=== PATIENT | female | born 1950 | race Caucasian/White ===

== ENCOUNTER → 2019-02-09 06:31 | Outpatient (CLI) | payer MEDICARE, OTHER, SELFPAY ==
--- NOTE | 2019-02-09 | DI.MRI.S_ITS ---
PROCEDURE: MR LUMBAR SPINE WO CON INDICATIONS: Other intervertebral disc degeneration, lumbar TECHNIQUE: Noncontrast sagittal T1 spin echo and T2 fast echo, sagittal STIR, axial T1 and T2 fast spin echo through the lumbar spine. In cases with scoliosis, additional coronal T2 fast spin echo may be performed. COMPARISON: [facility], MR, L-SPINE WITHOUT CONTRAST, 08/30/2016, 10:45. [facility], CR, L-SPINE MINIMUM 4 VIEWS, 08/30/2016, 11:11. [facility], CT, ABDOMEN/PELVIS WITH CONTRAST, 09/23/2017, 15:13. FINDINGS: Image quality: Excellent. Alignment and Curvature: There is minimal retrolisthesis at L1-L2. Mild grade 1 anterolisthesis is seen at L4-L5. No associated pars defects are seen. Bone Marrow: Marrow is of normal overall signal. No acute vertebral body compression fractures. Spinal Cord: Conus medullaris terminates at the L1 level. Visualized cord demonstrates normal signal and size. Paraspinous Soft Tissues: No paravertebral masses. T12-L1: Normal appearance. L1-L2: Mild loss of disc height is seen. Loss of disc signal is seen. Mild to moderate disc bulge is seen. Moderate bilateral neural foraminal narrowing is seen. Mild central canal narrowing is seen. When comparison is made with the prior examination, these findings are similar. L2-L3: The disc height is well-preserved. Loss of disc signal is seen at this level. Mild generalized disc bulge is seen. Mild bilateral neural foraminal narrowing is seen. Moderate bilateral neural foraminal narrowing is seen, right worse than left. Minimal central canal narrowing is seen. When comparison is made with the prior examination, these findings are similar. L3-L4: The disc height is well-preserved. Loss of disc signal is seen at this level. Moderate disc bulge is seen. There is a central disc protrusion seen. Moderate facet joint hypertrophy is seen. Moderate to severe bilateral neural foraminal narrowing is seen, left worse than right. There is a degree of impingement seen upon the exiting nerve roots. Moderate to severe central canal narrowing is seen. These degenerative changes are progressed compared to 2016. L4-L5: Mild loss of disc height is seen. Loss of disc signal is seen. Mild to moderate disc bulge is seen. Prominent facet hypertrophy is seen. Moderate to severe bilateral neural foraminal narrowing seen. There is a degree of impingement seen upon the exiting nerve roots. Moderate to severe central canal narrowing is seen. These degenerative changes are slightly progressed compared to 2016. L5-S1: Moderate to severe loss of disc height and disc signal are seen. Moderate generalized disc bulge is seen. There is at least moderate bilateral neural foraminal narrowing seen. Mild central canal narrowing is seen. When comparison is made with the prior examination, these findings are similar. IMPRESSION: Multiple levels of lumbar spine degenerative change are seen, which are overall most prominent at L4-L5. The degenerative changes have progressed compared to 2016. Dictated by: Mark Sosa M.D. on 02/09/2019 at 11:02 Approved by: Mark Sosa M.D. on 02/09/2019 at 11:10
== END ==
PROVIDERS: Family Provider Family Medicine; PCP Family Medicine; Visit Provider Family Medicine
DX: M51.36 Other intervertebral disc degeneration, lumbar region (principal); M47.816 Spondylosis without myelopathy or radiculopathy, lumbar region; M47.817 Spondylosis without myelopathy or radiculopathy, lumbosacral region; M43.16 Spondylolisthesis, lumbar region
CPT/HCPCS: 72148

== ENCOUNTER 2019-07-17 07:58 | Day surgery (SDC) | payer MEDICARE, OTHER, SELFPAY ==
[2019-07-17] VITALS (10 sets, daily range): BP systolic 114–152; BP diastolic 64–95; PULSE 54–76; RESP 15–16; TEMP 36.6–37.6; O2SAT 97–100; BMI 11.4
--- NOTE | 2019-07-17 | DI.RAD.S_ITS ---
PROCEDURE: FL MYELOGRAM SPINE LUMBOSACRAL INDICATIONS: LUMBAR SPINAL STENOSIS/[id number] TECHNIQUE: The indications, alternatives, benefits, risks and complications of the procedure were explained to the patient. Written informed consent was obtained and placed in the chart. The patient was placed in a prone position on the fluoroscopy table, and a level was chosen for percutaneous access under fluoroscopic guidance. The skin was prepped and draped in a sterile fashion. After local anaesthetic, a spinal needle was then used to enter the intrathecal space, with return of clear cerebrospinal fluid. 15 mL of Isovue M-200 were administered intrathecally under fluoroscopic visualization. The needle was then withdrawn, and a bandage applied to the puncture site. Fluoroscopic spot films were then acquired in various positions. FINDINGS: Standing frontal, lateral, and oblique views demonstrate no significant central canal stenoses. Access level: Right interlaminar notch, L2-3 level. Medications: 1% lidocaine for local anaesthesia. Complications: None. Patient was transferred to CT for subsequent CT myelogram. IMPRESSION: Successful fluoroscopically guided administration of iodinated contrast into the lumbar spine central canal for CT myelogram. Note was made of high-grade spinal stenosis at L3-4 and especially at L4-5. Dictated by: Onofre Kendall M.D. on 07/17/2019 at 10:24 Approved by: Onofre Kendall M.D. on 07/17/2019 at 10:25
--- NOTE | 2019-07-17 | DI.CT.S_ITS ---
PROCEDURE: CT LUMBAR SPINE W CON INDICATIONS: LUMBAR SPINAL STENOSIS/[id number] TECHNIQUE: After the intrathecal administration of 15 mL intrathecal contrast, 3 mm thick sections acquired from T12 to the sacrum. Sagittal and coronal reformats were then constructed. For radiation dose reduction, the following was used: automated exposure control. COMPARISON: None. FINDINGS: Image quality: Excellent. Bones: Mild L4-L5 anterolisthesis secondary to facet hypertrophy. Trace L1-L2 and L2-L3 retrolisthesis. No suspicious bony lesions. No acute fractures. Soft tissues: No retroperitoneal masses. Visualized aorta demonstrates normal caliber. T12-L1: Disc height is normal. Minimal, diffuse disc bulge. Anterior endplate osteophytosis. No central stenosis. No neural foraminal narrowing. No definite neural compression. L1-L2: Disc height is normal. Minimal, diffuse disc bulge are mild bilateral facet hypertrophy. Mild narrowing of the central canal. Mild bilateral neural foraminal narrowing. No definite neural compression. L2-L3: Disc height is normal. Minimal, diffuse disc bulge. Mild bilateral facet hypertrophy. Mild narrowing of the central canal. Mild bilateral neural foraminal narrowing. No definite neural compression. L3-L4: Disc height is normal. Mild diffuse disc bulge. Moderate facet and severe ligamentum flavum hypertrophy. Severe narrowing of the central canal with mild compression of the nerve roots of cauda equina. Moderate to severe bilateral neural foraminal narrowing with slight compression of the exiting L3 nerve roots. L4-L5: Disc height is normal. Vacuum disc phenomenon. Mild to moderate diffuse disc bulge. Severe facet and moderate ligamentum flavum hypertrophy. Severe narrowing of the central canal with compression of the nerve roots of the cauda equina. Severe bilateral neural foraminal narrowing with compression of the L4 nerve roots. L5-S1: Loss of disc height. Vacuum disc phenomenon. Mild, diffuse disc bulge. Mild bilateral facet hypertrophy. No central stenosis. Severe bilateral neural foraminal narrowing with compression of the L5 nerve roots. Miscellaneous: Nerve roots appear unremarkable throughout. No nerve root clumping to suggest arachnoiditis. IMPRESSION: 1. L1-L2, L2-L3 and L4-L5 grade I degenerative spondylolisthesis. 2. Multilevel degenerative disc disease. 3. Multilevel facet arthropathy. 4. Severe L4-L5 at L3-L4 central canal narrowing. Mild L1-L2 and L2-L3 central canal narrowing. 5. Severe bilateral L4-L5 and L5-S1 neural foraminal narrowing. Moderate to severe bilateral L3-L4 neural foraminal narrowing. Mild bilateral L1-L2 and L2-L3 neuroforaminal narrowing. Dictated by: Annette Mcdonough MD, PhD on 07/17/2019 at 14:30 Approved by: Annette Mcdonough MD, PhD on 07/17/2019 at 15:05
[2019-07-17 09:02] LABS: Hematocrit 41.7 % (36-46); Platelet Count 250 X10^3/uL (150-400)
[2019-07-17 09:11] LABS: Prothrombin Time 11.7 SECONDS (10.1-12.7)
--- NOTE | 2019-07-17 09:18 | SUR.PREOP ---
Pt. taking to DI department via samaria
[2019-07-17] MEDS: MIDAZOLAM 5 MG/ML VIAL 2 MG IV (09:32)
--- NOTE | 2019-07-17 09:52 | PC.NURSE ---
Pt finished procedure 945, transferred pt to CT scan for imaging, pt complaining of cramping and pain in her bilateral buttocks and upper legs. Dr. Kendall aware.
--- NOTE | 2019-07-17 10:00 | PC.NURSE ---
Pt tolerated procedure well until end when pt complained of buttock pain and hamstring pain, Dr. Kendall is aware. Stayed with patient during CT and now transferred pt to PACU and transferred care to Amanda EVERETT. Pt's leg sx's are decreasing.
--- NOTE | 2019-07-17 10:06 | SUR.PREOP ---
1000 - pt. returned to OPD, in no acute distress, will continue to monitor
--- NOTE | 2019-07-17 12:24 | SUR.PHASEII ---
Late entry: Pt returned to radiology x 1 for repeat scan. Pt feed lunch, no problems, initially had reports of pain 3/10 to buttocks and radiated down both legs and had feelings of hamstrings twitching, IZABELLA Dickson RN stated Dr. Kendall was aware.
--- NOTE | 2019-07-17 16:35 | SUR.PHASEII ---
Late entry: Pt's pain in buttocks and lower legs and twitching of hamstrings resolved by discharge. Supportive at bedside through out stay here in Phase 2. Pt left when ready and left in stable condition. Bandaid remained c/d/i.
== END 2019-07-17 12:40 | disposition home or self-care (01) ==
PROVIDERS: Radiology Diagnostic Radiology; PCP Family Medicine; Visit Provider Family Medicine
DX: M48.061 Spinal stenosis, lumbar region without neurogenic claudication (principal); M47.816 Spondylosis without myelopathy or radiculopathy, lumbar region; M43.16 Spondylolisthesis, lumbar region
CPT/HCPCS: 36415; 72132; 72265; 85014; 85049; 85610; J2250

== ENCOUNTER → 2019-11-09 12:27 | Outpatient (CLI) | payer MEDICARE, OTHER, SELFPAY ==
--- NOTE | 2019-11-09 | DI.MG.S_ITS ---
BILATERAL DIGITAL DIAGNOSTIC MAMMOGRAM 3D/2D: 11/09/2019 CLINICAL: Left breast pain. Comparison is made to exams dated: 01/14/2017 mammogram, 11/05/2014 mammogram, and 06/04/2013 mammogram - [facility]. There are scattered fibroglandular elements in both breasts. No significant masses, calcifications, or other findings are seen in either breast. IMPRESSION: INCOMPLETE: NEEDS ADDITIONAL IMAGING EVALUATION There is no abnormality seen in the left breast to correspond with the pain in the posterior depth in the upper outer quadrant, however, ultrasound is recommended. There is no abnormality seen in the left breast to correspond with the palpable abnormality and pain at 6 o'clock in the posterior depth, however, ultrasound is recommended. This exam was interpreted at Station ID: [id number]. NOTE: For mammograms, a report in lay terms will be sent to the patient. Approximately 15% of breast malignancies will not be visualized mammographically. In the management of a palpable breast mass, a negative mammogram must not discourage biopsy of a clinically suspicious lesion. Electronically Signed By: Lobito figueroa/angle:11/09/2019 13:40:25 ACR BI-RADS Category 0: Incomplete 3340F
--- NOTE | 2019-11-09 | DI.US.S_ITS ---
LIMITED ULTRASOUND OF LEFT BREAST: 11/09/2019 CLINICAL: Focal left breast pain. Palpable left breast lump. Comparison is made to exams dated: 11/09/2019 mammogram - [facility], 01/14/2017 mammogram, 11/05/2014 mammogram, and 06/04/2013 mammogram - [facility]. Real-time ultrasound of the left breast 1-2 o'clock and 6-8 o'clock regions was performed on the area of interest. IMPRESSION: NEGATIVE There is no sonographic evidence of malignancy. There are no abnormalities seen in the left breast to correspond with the pain at 1 and 2 o'clock, however, clinical followup is recommended. There are no abnormalities seen in the left breast to correspond with the palpable abnormalities and pain at 6, 7, and 8 o'clock, however, clinical followup is recommended. A 1 year screening mammogram is recommended. This exam was interpreted at Station ID: [id number]. Electronically Signed By: Lobito Earl M.D. ddpriyanka/:11/09/2019 14:11:33 letter sent: Clinical Evaluation Ultrasound BI-RADS: 1 Negative
== END ==
PROVIDERS: PCP Family Medicine; Visit Provider Family Medicine
DX: R92.2 Inconclusive mammogram (principal); N64.4 Mastodynia; N63.25 Unspecified lump in the left breast, overlapping quadrants
CPT/HCPCS: 76642; 77066; G0279

== ENCOUNTER → 2020-04-01 16:55 | Outpatient (CLI) | payer MEDICARE, OTHER, SELFPAY ==
--- NOTE | 2020-04-01 | DI.RAD.S_ITS ---
PROCEDURE: XR LUMBAR SPINE MIN 4V INDICATIONS: Lumbar stenosis without neurogenic claudication TECHNIQUE: 4 views of the lumbar spine acquired. COMPARISON: [facility], , L-SPINE MINIMUM 4 VIEWS, 08/30/2016, 11:11. FINDINGS: Bones: 5 nonrib-bearing vertebrae are present. Patient is status post interval transpedicular fusion at L4-5 level with grade 1 anterolisthesis of L4 on L5 measures 5-6 mm in distance compared to 1 cm on preop image. Minimal retrolisthesis of L2 on L3 is seen. Degenerative endplate changes are noted throughout lumbar spine. No vertebral body compression fractures. No suspicious bony lesions. Soft tissues: Overlying bowel gas pattern is normal. No suspicious soft tissue calcifications. Flexion/extension: There is decreased range of motion, with preserved lumbar spine alignment. IMPRESSION: Interval fusion at L4-5 level with decrease in the extent of spondylolisthesis at this level. Stable minimal retrolisthesis of L2 on L3. Slightly decreased range of motion with preserved lumbar spine alignment. Dictated by: Wellington Shepherd M.D. on 04/01/2020 at 17:33 Approved by: Wellington Shepherd M.D. on 04/01/2020 at 17:35
== END ==
PROVIDERS: PCP Family Medicine; Referring Provider Orthopaedic Surgery; Visit Provider Orthopaedic Surgery
DX: M48.061 Spinal stenosis, lumbar region without neurogenic claudication (principal); M43.16 Spondylolisthesis, lumbar region; Z98.1 Arthrodesis status
CPT/HCPCS: 72110

== ENCOUNTER → 2020-12-26 09:15 | Outpatient (CLI) | payer MEDICARE, OTHER, SELFPAY ==
[2020-12-26 10:23] LABS: Add Manual Diff / Slide Review NO; Basophils Absolute Auto 100 /uL (0-100); Basophils Percent Auto 0.9 % (0-2); Eosinophils Absolute Auto 200 /uL (0-450); Eosinophils Percent Auto 3.3 % (2-4); Hematocrit 38.9 % (36-46); Hemoglobin 13.2 g/dL (12.0-16.0); Lymphocytes Absolute Auto 2200 /uL (1100-4500); Mean Corpuscular HGB Conc 33.9 % (30-36); Mean Corpuscular Hemoglobin 29.6 PG (26-34); Mean Corpuscular Volume 87.4 fL (80-100); Monocytes Absolute Auto 500 /uL (0-900); Monocytes Percent Auto 8.3 % (3-14); Neutrophils Absolute Auto 3300 /uL (1500-7000); Neutrophils Percent Auto 52.5 % (50-75); Platelet Count 217 X10^3/uL (150-400); Red Blood Cell Count 4.46 X10^6/uL (4.0-5.2); Red Cell Distribution Width 14.2 % (11.6-14.8); White Blood Cell Count 6.2 X10^3/uL (4.5-11.0)
[2020-12-26 10:40] LABS: BUN Creatinine Ratio 31.3 (6-22); Blood Urea Nitrogen 15 mg/dL (7-17); Calcium 9.4 mg/dL (8.4-10.2); Carbon Dioxide 31 mmol/L (22-32); Chloride 107 mmol/L (98-107); Estimated Glomerular Filt Rate > 60.0 mL/min (>60); Glucose 96 mg/dL (80-110); HEMOLYSIS < 15 (0-50); Potassium 4.2 mmol/L (3.4-5.1); Sodium 139 mmol/L (137-145)
== END ==
PROVIDERS: PCP Family Medicine; Referring Provider Family Medicine; Visit Provider Family Medicine
DX: Z01.818 Encounter for other preprocedural examination (principal); M67.844 Other specified disorders of tendon, left hand; T84.84XD Pain due to internal orthopedic prosthetic devices, implants and grafts, subsequent encounter
CPT/HCPCS: 36415; 80048; 85025; 93005; 93010

== ENCOUNTER → 2021-05-01 09:06 | Outpatient (CLI) | payer MEDICARE, OTHER, SELFPAY ==
[2021-05-01 11:45] LABS: COVID19 -Nasal RAPID Negative (Negative)
== END ==
PROVIDERS: PCP Family Medicine; Visit Provider Physician Assistant
DX: Z01.812 Encounter for preprocedural laboratory examination (principal); Z20.822 Contact with and (suspected) exposure to COVID-19
CPT/HCPCS: 87635; C9803

== ENCOUNTER → 2021-05-03 15:01 | Outpatient (CLI) | payer MEDICARE, OTHER, SELFPAY ==
--- NOTE | 2021-05-03 15:58 | PM.TREADMILL ---
Cardiac Stress Test Report Referral & Results Date Patient Seen: 05/03/21 Time Patient Seen: 15:58 Requesting provider: Newton Flores Indication: Chest pain Rest ECG: Sinus rhythm with nonspecific ST changes Procedure Note: Standard Aayush protocol, 7:33 mins, 7.7 METS Very good exercise capacity, GOOD -33% Normal hemodynamic response to exercise No chest pain or anginal symptoms No significant ST changes at peak exercise Rare PVC Impression: Normal exercise capacity Please note: Actual ECG tracings can be found in the PACS system.
--- NOTE | 2021-05-03 18:19 | DI.NM.S_ITS ---
DATE OF SERVICE: 05/03/2021 PROCEDURE PERFORMED: Exercise treadmill stress test without imaging. ORDERING PROVIDER: Dr. Newton Flores. INDICATIONS: The patient is a 70-year-old female with chest discomfort. FINDINGS: 1. The patient was able to exercise for 7 minutes 33 seconds, suggesting excellent exercise capacity with an GOOD of -33%, achieving 7.7 METs. 2. She had a normal heart rate and blood pressure response to exercise, achieving a maximum heart rate of 158 BPM (106% of her predicted maximum). 3. She had no chest discomfort or anginal symptoms. 4. Her resting ECG shows sinus rhythm with subtle, nonspecific ST-segment abnormalities that become slightly accentuated with exercise, although corrupted by considerable motion artifact at peak exercise. Her 1 minute recovery ECG shows resolution of any ST-segment abnormality and thus this is nonspecific. She had rare isolated PVCs in recovery, but no concerning arrhythmias. IMPRESSION: 1. Normal exercise treadmill study with no significant evidence for ischemia. 2. Excellent exercise capacity without angina. She had rare isolated premature ventricular contractions, but no concerning arrhythmias. Libertad Vasquez - DEMETRIS/fernando/jigar doc#: [id number]/job#: [id number] dd: 05/03/2021 16:38:00 dt: 05/03/2021 18:10:00 DICTATING /COPIES TO: Kevin Drew MD; Newton Flores MD COPIES MNE: RADHA;
== END ==
PROVIDERS: PCP Family Medicine; Referring Provider Student in an Organized Health Care Education/Training Program; Visit Provider Student in an Organized Health Care Education/Training Program
DX: R07.89 Other chest pain (principal)
CPT/HCPCS: 93017

== ENCOUNTER → 2023-05-14 09:29 | Outpatient (CLI) | payer MEDICARE, OTHER, SELFPAY ==
[2023-05-14 20:10] LABS: Add Manual Diff / Slide Review NO; Basophils Absolute Auto 100 /uL (0-100); Basophils Percent Auto 0.8 % (0-2); Eosinophils Absolute Auto 100 /uL (0-450); Eosinophils Percent Auto 2.1 % (2-4); Hematocrit 39.9 % (36-46); Hemoglobin 13.7 g/dL (12.0-16.0); Lymphocytes Absolute Auto 2700 /uL (1100-4500); Lymphocytes Percent Auto 41.2 % (25-40); Mean Corpuscular HGB Conc 34.3 % (30-36); Mean Corpuscular Hemoglobin 29.4 PG (26-34); Mean Corpuscular Volume 85.7 fL (80-100); Monocytes Absolute Auto 500 /uL (0-900); Monocytes Percent Auto 8.2 % (3-14); Neutrophils Absolute Auto 3100 /uL (1500-7000); Neutrophils Percent Auto 47.7 % (50-75); Platelet Count 223 X10^3/uL (150-400); Red Blood Cell Count 4.66 X10^6/uL (4.0-5.2); Red Cell Distribution Width 13.9 % (11.6-14.8); White Blood Cell Count 6.5 X10^3/uL (4.5-11.0)
[2023-05-14 20:17] LABS: Alanine Aminotransferase 23 IU/L (<35); Albumin 4.3 g/dL (3.5-5.0); Albumin Globulin Ratio 1.7 (1.0-2.8); Alkaline Phosphatase 53 U/L (38-126); Aspartate Aminotransferase 37 IU/L (14-36); BUN Creatinine Ratio 29.3 (6-22); Bilirubin Total 0.7 mg/dL (0.2-1.3); Blood Urea Nitrogen 17 mg/dL (7-17); C-Reactive Protein Quant < 0.5 mg/dL (<1.0); Carbon Dioxide 30 mmol/L (22-32); Chloride 104 mmol/L (98-107); Cholesterol 273 mg/dL (140-199); Estimated Glomerular Filt Rate > 60 mL/min (>60); Globulin 2.6 g/dL (1.7-4.1); Glucose 82 mg/dL (80-110); HDL Cholesterol 65 mg/dL (40-60); HEMOLYSIS < 15 (0-50); LDL Cholesterol Calculated 194 mg/dL (<100); Potassium 4.3 mmol/L (3.4-5.1); Sodium 139 mmol/L (137-145); Total Protein 6.9 g/dL (6.3-8.2); Triglycerides 71 mg/dL (35-150)
[2023-05-14 20:32] LABS: Erythrocyte Sedimentation Rate 10 MM/HR (0-20)
== END ==
PROVIDERS: PCP Physician Assistant Medical; Visit Provider Physician Assistant Medical
DX: R07.89 Other chest pain (principal); R10.9 Unspecified abdominal pain
CPT/HCPCS: 80053; 80061; 85025; 85651; 86140

== ENCOUNTER → 2023-07-19 07:26 | Outpatient (CLI) | payer MEDICARE, OTHER, SELFPAY ==
--- NOTE | 2023-07-19 07:27 | DI.US.S_ITS ---
PROCEDURE: US ABDOMEN COMPLETE INDICATIONS: GENERAL ABDOMINAL PAIN TECHNIQUE: Real-time scanning was performed of the abdominal and retroperitoneal organs, with image documentation. COMPARISON: [facility], CT, ABDOMEN/PELVIS WITH CONTRAST, 09/23/2017, 15:13. FINDINGS: Liver: Liver length of 16.1 centimeters. Unremarkable background echotexture. Few small cysts present as before. Gallbladder: No stones, wall thickening, or sonographic Lucas sign. Few small polyps largest measuring up to 4 millimeters. Per ACR incidental findings guidelines, imaging follow-up is not necessary for polyps of this size. Biliary ducts: Intrahepatic bile ducts are non-dilated. Extrahepatic bile duct caliber measures 8 mm. Normal is 6-7 mm or less in diameter, or 10 mm or less post-cholecystectomy. Pancreas: Visualized portions of the pancreas are sonographically normal. Spleen: Spleen is normal in size and homogeneous in echotexture. Kidneys: Right kidney measures min 0.8 cm long; left kidney measures 8.9 cm long. No hydronephrosis. Possible 5 millimeter nonobstructing stone left mid kidney. 5 millimeter echogenic focus left mid kidney cortex is nonspecific, possible tiny angiomyolipoma.. Aorta: Visualized aorta is normal in caliber at less than 3 cm. Iliacs: Proximal common iliac arteries are normal in caliber at less than 2.5 cm. IVC: Intrahepatic inferior vena cava is patent. Miscellaneous: No free abdominal fluid. IMPRESSION: 1. Minimal dilation of the extrahepatic bile duct without intrahepatic ductal dilation visualized. This finding is of uncertain etiology or clinical significance. There does not appear to have been a significant change since the [address] Correlation with the patient's symptoms and laboratory markers for evidence of biliary obstruction may be helpful. 2. Possible small nonobstructing left renal stone. Dictated by: Franco Lux M.D. on 07/19/2023 at 10:38 Approved by: Franco Lux M.D. on 07/19/2023 at 10:45
--- NOTE | 2023-07-19 07:27 | DI.US.S_ITS ---
PROCEDURE: US PELVIC COMPLETE INDICATIONS: HISTORY OF POLYPS. TECHNIQUE: Real-time scanning was performed of the pelvic organs, with image documentation. Additional endovaginal scanning was necessary due to incomplete visualization of the adnexal and endometrial structures by transabdominal scanning. COMPARISON: [facility], , PELVIC COMPLETE, 10/18/2017, 13:22. FINDINGS: Uterus: Uterus is anteverted and measures 4.7 x 2.6 x 2.6 cm. The myometrium is homogeneous. The endometrium measures 3 mm combined thickness. No focal endometrial lesion identified. Ovaries: Not visualized. No adnexal mass visualized. Other: No pathologic free abdominal or pelvic fluid. IMPRESSION: 1. Endometrial thickness of 3 millimeters without focal endometrial lesion identified sonographically. 2. The ovaries are not visualized, likely due to bowel gas and/or senescent change. No adnexal mass identified. We strive to produce accurate, complete, and clear reports of imaging services. To assist us in improving patient care, this report was composed using standard report templates and voice recognition software. Therefore, it may contain abnormal punctuation, insertions and/or omissions. Occasional wrong-word or sound-alike substitutions may occur. Though we review the report and make efforts to correct it, we do recommend that the report be read carefully in proper context to recognize any text inaccuracies. Dictated by: Franco Lux M.D. on 07/19/2023 at 10:45 Approved by: Franco Lux M.D. on 07/19/2023 at 10:51
== END ==
PROVIDERS: PCP Physician Assistant Medical; Referring Provider Physician Assistant Medical; Visit Provider Physician Assistant Medical
DX: N84.0 Polyp of corpus uteri (principal); R10.9 Unspecified abdominal pain
CPT/HCPCS: 76700; 76856

== ENCOUNTER → 2024-04-15 08:29 | Outpatient (CLI) | payer MEDICARE, OTHER, SELFPAY ==
[2024-04-15 19:30] LABS: Add Manual Diff / Slide Review NO; Basophils Absolute Auto 100 /uL (0-100); Basophils Percent Auto 0.9 % (0-2); Eosinophils Absolute Auto 200 /uL (0-450); Eosinophils Percent Auto 2.6 % (2-4); Hematocrit 41.3 % (36-46); Hemoglobin 13.8 g/dL (12.0-16.0); Lymphocytes Absolute Auto 3000 /uL (1100-4500); Lymphocytes Percent Auto 45.8 % (25-40); Mean Corpuscular HGB Conc 33.5 % (30-36); Mean Corpuscular Hemoglobin 29.2 PG (26-34); Mean Corpuscular Volume 87.3 fL (80-100); Monocytes Absolute Auto 600 /uL (0-900); Monocytes Percent Auto 9.2 % (3-14); Neutrophils Absolute Auto 2700 /uL (1500-7000); Neutrophils Percent Auto 41.5 % (50-75); Platelet Count 228 X10^3/uL (150-400); Red Blood Cell Count 4.73 X10^6/uL (4.0-5.2); Red Cell Distribution Width 13.7 % (11.6-14.8); White Blood Cell Count 6.6 X10^3/uL (4.5-11.0)
[2024-04-15 19:39] LABS: Alanine Aminotransferase 18 IU/L (<35); Albumin 4.2 g/dL (3.5-5.0); Albumin Globulin Ratio 1.8 (1.0-2.8); Alkaline Phosphatase 56 U/L (38-126); Aspartate Aminotransferase 37 IU/L (14-36); BUN Creatinine Ratio 33.3 (6-22); Bilirubin Total 0.5 mg/dL (0.2-1.3); Blood Urea Nitrogen 18 mg/dL (7-17); C-Reactive Protein Quant < 0.5 mg/dL (<1.0); Calcium 9.9 mg/dL (8.4-10.2); Carbon Dioxide 31 mmol/L (22-32); Chloride 109 mmol/L (98-107); Cholesterol 248 mg/dL (140-199); Estimated Glomerular Filt Rate > 60 mL/min (>60); Globulin 2.3 g/dL (1.7-4.1); Glucose 80 mg/dL (80-110); HDL Cholesterol 61 mg/dL (40-60); HEMOLYSIS < 15 (0-50); LDL Cholesterol Calculated 159 mg/dL (<100); Potassium 4.7 mmol/L (3.4-5.1); Sodium 141 mmol/L (137-145); Total Protein 6.5 g/dL (6.3-8.2); Triglycerides 138 mg/dL (35-150)
== END ==
PROVIDERS: PCP Physician Assistant Medical; Visit Provider Physician Assistant Medical
DX: R51.9 Headache, unspecified (principal); I10 Essential (primary) hypertension; J45.909 Unspecified asthma, uncomplicated; R05.9 Cough, unspecified; H92.02 Otalgia, left ear; E78.5 Hyperlipidemia, unspecified; R10.9 Unspecified abdominal pain
CPT/HCPCS: 80053; 80061; 85025; 86140

== ENCOUNTER → 2024-05-13 11:01 | Outpatient (CLI) | payer MEDICARE, OTHER, SELFPAY | LOC: RESP 11:01 | PROVIDERS: PCP Physician Assistant Medical; Referring Provider Physician Assistant Medical; Visit Provider Physician Assistant Medical | DX: J45.909 Unspecified asthma, uncomplicated (principal); R05.9 Cough, unspecified | CPT/HCPCS: 94010; 94726; 94729 ==

== ENCOUNTER → 2024-05-19 12:17 | Outpatient (CLI) | payer MEDICARE, OTHER, SELFPAY ==
[2024-05-22 14:17] LABS: Fecal Immunochemical Test Negative (Negative)
== END ==
PROVIDERS: PCP Physician Assistant Medical; Visit Provider Physician Assistant Medical
DX: Z12.11 Encounter for screening for malignant neoplasm of colon (principal); Z71.89 Other specified counseling
CPT/HCPCS: 82274

== ENCOUNTER → 2024-07-03 09:06 | Outpatient (CLI) | payer MEDICARE, OTHER, SELFPAY ==
--- NOTE | 2024-07-03 09:09 | DI.MG.S_ITS ---
BILATERAL DIGITAL SCREENING MAMMOGRAM 3D/2D WITH CAD: 07/03/2024 CLINICAL: Routine screening. Comparison is made to exams dated: 11/09/2019 mammogram - [facility], 06/26/2023 mammogram, and 06/06/2021 mammogram. There are scattered areas of fibroglandular density in both breasts (category b / 25%-50% glandular tissue). Current study was also evaluated with a Computer Aided Detection (CAD) system. No significant masses, calcifications, or other findings are seen in either breast. There has been no significant interval change. IMPRESSION: NEGATIVE There is no mammographic evidence of malignancy. A 1 year screening mammogram is recommended. Based on the Tyrer Cuzick model (a risk assessment model) the patient's lifetime risk is 2.7% and her 10 year risk is 2.4%. According to the ACR, ACS, and NCCN guidelines, an annual breast MRI exam along with mammogram is recommended if the patient's lifetime risk is 20% or greater. This exam was interpreted at Station ID: [id number]. NOTE: For mammograms, a report in lay terms will be sent to the patient. Approximately 15% of breast malignancies will not be visualized mammographically. In the management of a palpable breast mass, a negative mammogram must not discourage biopsy of a clinically suspicious lesion. Electronically Signed By: Franco cadena/angle:07/03/2024 09:39:21 letter sent: Normal Exam ACR BI-RADS Category 1: Negative [id number]
--- NOTE | 2024-07-03 09:09 | DI.RAD.S_ITS ---
PROCEDURE: XR DEXA AXIAL SKELETON INDICATIONS: due COMPARISON: None. FINDINGS: Left Hip: Bone mineral density 0.743 g/cm2, T score -1.6 Left Femoral Neck: Bone mineral density is 0.534 g/cm2, T score -2.8 Right Hip: Bone mineral density 0.740 g/cm2, T score -1.7 Right Femoral Neck: Bone mineral density 0.579 g/cm2, T score -2.4 Right Forearm: Bone mineral density 0.446 g/cm2, T score -2 5 Fracture Risk Calculation (when applicable): 10-year fracture risk of a major osteoporotic fracture 18%and of a hip fracture 6.3% (T score greater or equal to -1.0 to: NORMAL) (T score from -1.1 to -2.4: OSTEOPENIA) (T score less than or equal to -2.5: OSTEOPOROSIS) IMPRESSION: There is osteoporosis of the left femoral neck and left forearm. There is osteopenia of the right hip and right femoral neck. Follow-up guidelines as follows: Osteoporosis: Consider a repeat DEXA and Vertebral Fracture Assessment (VFA) exam in 2 years or sooner if medically necessary, to reassess this patient's status. Osteopenia: Consider a repeat DEXA in 2-3 years to reassess this patient's status, or if there is a new clinical indication. Normal: Consider a repeat DEXA in 5 years or sooner, or if there is a new clinical indication. All treatment decisions require clinical judgment and consideration of individual patient factors, including patient preferences, comorbidities, previous drug use, risk factors not captured in the FRAX model (e.g., frailty, falls, vitamin D deficiency, increased bone turnover, interval significant decline in bone density ) and possible under- or over-estimation of fracture risk by FRAX. In addition, the NOF Guide recommends that FDA-approved medical therapies be considered in postmenopausal women and men age >= 50 years with a: * Hip or vertebral (clinical or morphometric) fracture * T-score of <=-2.5 at the spine or hip * Ten-year fracture probability by FRAX of >= 3% for hip fracture or >=20% for major osteoporotic fracture. People with diagnosed cases of osteoporosis or at high risk for fracture should have regular bone mineral density tests. For patients eligible for Medicare, routine testing is allowed once every 2 years. The testing frequency can be increased to one year for patients who have rapidly progressing disease, those who are receiving or discontinuing medical therapy to restore bone mass, or have additional risk factors. Dictated by: Diallo Field M.D. on 07/03/2024 at 14:20 Approved by: Diallo Field M.D. on 07/03/2024 at 14:24
== END ==
LOC: MAMMO 09:07
PROVIDERS: PCP Physician Assistant Medical; Referring Provider Physician Assistant Medical; Visit Provider Physician Assistant Medical
DX: R92.323 Mammographic fibroglandular density, bilateral breasts (principal); Z12.31 Encounter for screening mammogram for malignant neoplasm of breast; M81.0 Age-related osteoporosis without current pathological fracture; Z78.0 Asymptomatic menopausal state
CPT/HCPCS: 77063; 77067; 77080; 77081

== ENCOUNTER → 2024-08-11 08:58 | Outpatient (CLI) | payer MEDICARE, OTHER, SELFPAY ==
--- NOTE | 2024-08-11 09:00 | DI.RAD.S_ITS ---
PROCEDURE: XR SINUS MIN 3V INDICATIONS: chronic sinusitis TECHNIQUE: 3 views of the sinuses were acquired. COMPARISON: None. FINDINGS: Sinuses: The visualized sinuses demonstrate no air-fluid levels or mucosal thickening. The visualized mastoids also appear clear. Bones: No suspicious bony lesions. Nasal septum is midline. IMPRESSION: No air-fluid levels to suggest acute sinusitis. Approved by: Joaquín Staley M.D. on 08/11/2024 at 18:49
[2024-08-11 11:03] LABS: Alanine Aminotransferase 17 IU/L (<35); Albumin 3.9 g/dL (3.5-5.0); Albumin Globulin Ratio 1.6 (1.0-2.8); Alkaline Phosphatase 64 U/L (38-126); Aspartate Aminotransferase 31 IU/L (14-36); BUN Creatinine Ratio 22.6 (6-22); Bilirubin Total 0.5 mg/dL (0.2-1.3); Blood Urea Nitrogen 12 mg/dL (7-17); Calcium 10.1 mg/dL (8.4-10.2); Carbon Dioxide 29 mmol/L (22-32); Chloride 108 mmol/L (98-107); Cholesterol 249 mg/dL (140-199); Estimated Glomerular Filt Rate > 60 mL/min (>60); Globulin 2.5 g/dL (1.7-4.1); Glucose 88 mg/dL (80-110); HDL Cholesterol 54 mg/dL (40-60); HEMOLYSIS < 15 (0-50); LDL Cholesterol Calculated 163 mg/dL (<100); Potassium 4.5 mmol/L (3.4-5.1); Sodium 141 mmol/L (137-145); Total Protein 6.4 g/dL (6.3-8.2); Triglycerides 158 mg/dL (35-150)
== END ==
PROVIDERS: PCP Physician Assistant Medical; Referring Provider Physician Assistant Medical; Visit Provider Physician Assistant Medical
DX: E78.5 Hyperlipidemia, unspecified (principal); H92.02 Otalgia, left ear; J32.9 Chronic sinusitis, unspecified; J45.909 Unspecified asthma, uncomplicated; R05.9 Cough, unspecified; R79.89 Other specified abnormal findings of blood chemistry
CPT/HCPCS: 36415; 70220; 80053; 80061

== ENCOUNTER → 2024-08-26 09:25 | Outpatient (CLI) | payer MEDICARE, OTHER, SELFPAY ==
[2024-08-26 20:11] LABS: TSH w/ Reflex to FT4 0.39 uIU/mL (0.47-4.68)
[2024-08-26 20:40] LABS: Free T4, Direct Thyroxine 0.91 ng/dL (0.78-2.19)
== END ==
PROVIDERS: PCP Physician Assistant Medical; Visit Provider Physician Assistant Medical
DX: R00.2 Palpitations (principal)
CPT/HCPCS: 84439; 84443

== ENCOUNTER → 2024-11-04 | Outpatient (CLI) | payer MEDICARE, OTHER, SELFPAY ==
--- NOTE | 2024-11-04 12:35 | DI.ECHO.S_ITS ---
[facility] : : [address] : : [place] : : [id number] : : Phone: [phone] Echocardiogram Report + + :Name: FLORENCE HAYNES Study Date: 11/04/2024 Height: 61 in : :[facility] ReadingLocation: Weight: 125 lb : : Gender: Female BSA: 1.5 m2 : :: 1950 Age: 74 yrs BP: 155/80 mmHg: :Reason For Study: Palpitations : :Ordering Physician: ITALIA, : :TEMI Performed By: Alda Whaley : :Referring: TEMI ECHAVARRIA : + + Interpretation Summary 1. The left ventricular contractility is normal. Estimate ejection fraction is greater than 55% with no segmental wall motion abnormalities. No LVH. Grade 1 diastolic dysfunction. 2. The right ventricular contractility is normal. 3. Left atrial enlargement noted. All other cardiac chambers are of normal size. 4. No significant valvular abnormalities. 5. No obvious intracardiac shunts but the interatrial septum is aneurysmal. 6. No obvious intracardiac masses or thrombi. 7. No hemodynamically significant pericardial effusion. 8. Low right-sided filling pressures. Conclusion: Normal biventricular systolic function with no significant valvular abnormalities. Procedure: A two-dimensional transthoracic echocardiogram with color flow and Doppler was performed. The study quality was technically good. There is no prior echocardiogram noted for this patient. The patient was in sinus rhythm with heart rates between 54-64 bpm during the exam. The patient had occasional PVCs during the exam. The patient had occasional PACs during the exam. Left Ventricle: The left ventricle is normal in size and wall thickness. The ejection fraction is estimated to be 55-60%. Diastolic parameters suggest a relaxation abnormality of the left ventricle, consistent with probable normal filling pressures. Atria: The left atrium is moderately dilated. Right atrial size is normal. The atrial septum is aneurysmal. Mitral Valve: The mitral valve leaflets appear normal. There is no evidence of stenosis, fluttering, or prolapse. There is no mitral valve stenosis. There is trace mitral regurgitation. Aortic Valve: The aortic valve is trileaflet. The aortic valve opens well. There is mild aortic valve sclerosis. There is no aortic valve stenosis. No aortic regurgitation is present. Tricuspid Valve: The tricuspid valve leaflets are thin and pliable. There is a trace or physiologic amount of tricuspid regurgitation. Pulmonary artery pressures cannot be estimated because of the lack of a measurable TR jet velocity but the IVC suggests a CVP of around 3 mmHg. Pulmonic Valve: The pulmonic valve is not well seen, but is grossly normal. There is a trace or physiologic amount of pulmonic regurgitation. Great Vessels: The aortic root is normal size. The ascending aorta is normal in size. The aortic arch is normal in size. The pulmonary artery is normal size. The IVC is of normal diameter and collapses greater than 50% with a sniff. This suggests a low right atrial pressure of 3 mm Hg. Pericardium/ Pleura There is no pericardial effusion. There is no pleural effusion. MMode/2D Measurements & Calculations LVIDd: 4.8 cm LVOT diam: 2.0 cm LVIDs: 2.7 cm Ao root diam: 3.1 cm FS: 43.3 % asc Aorta Diam: 3.6 cm EPSS: 0.21 cm Ao Arch Diam (Prox Trans): 2.7 cm IVSd: 0.89 cm LVPWd: 0.72 cm LV perez. diameter/BSA (cm/m^2): 3.1 LV sys. diameter/BSA (cm/m^2): 1.8 LA A2 area: 26.8 cm2 RA long axis: 5.0 cm LA A4 area: 19.5 cm2 RA area: 15.4 cm2 LA length (vol): 6.1 cm RA vol: 40.0 ml LA vol: 73.5 ml RA : 25.8 ml/m2 LA vol index: 47.5 ml/m2 IVC diam: 1.1 cm TAPSE: 2.8 cm Doppler Measurements & Calculations Ao V2 max: 125.9 cm/sec LVOT Max Nabil: 93.3 cm/sec Ao V2 mean: 89.9 cm/sec LV V1 max P.5 mmHg Ao max P.3 mmHg LV V1 VTI: 19.9 cm Ao mean P.5 mmHg MATTY(I,D): 2.2 cm2 Ao V2 VTI: 29.5 cm MATTY(V,D): 2.4 cm2 sev ratio: 0.67 MATTY indexed to BSA (cm^2/m^2): 1.4 MV E max nabil: 56.0 cm/sec PA V2 max: 71.5 cm/sec MV A max nabil: 87.5 cm/sec PA V2 mean: 46.9 cm/sec MV E/A: 0.64 PA mean P.98 mmHg Med Peak E' Nabil: 5.8 cm/sec PA pr(Accel): 37.9 mmHg E/E' med: 9.7 Lat Peak E' Nabil: 10.1 cm/sec E/E' lat: 5.6 E/e' average: 7.6 MV dec time: 0.21 sec MVA(VTI): 2.6 cm2 MV V2 mean: 49.9 cm/sec SV(LVOT): 64.5 ml MV mean P.1 mmHg MV V2 VTI: 24.6 cm Reading Physician:
== END ==
LOC: ECHO 09:19
PROVIDERS: PCP Physician Assistant Medical; Referring Provider Physician Assistant Medical; Visit Provider Physician Assistant Medical
DX: I35.8 Other nonrheumatic aortic valve disorders (principal); R00.2 Palpitations; I10 Essential (primary) hypertension
CPT/HCPCS: 93306

== ENCOUNTER → 2025-01-14 19:24 | Outpatient (CLI) | payer MEDICARE, OTHER, SELFPAY ==
--- NOTE | 2025-01-14 20:03 | DI.MRI.S_ITS ---
PROCEDURE: MR KNEE LT WO CON INDICATIONS: medial knee pain TECHNIQUE: Noncontrast sagittal PD fast spin echo and T2 fast spin echo with fat saturation, sagittal 3-D FLASH with fat saturation; coronal T1 spin echo and PD fast spin echo with fat saturation, and axial PD fast spin echo with fat saturation through the knee. COMPARISON: None. FINDINGS: Image quality: Excellent. Menisci: Oblique tear involving posterior horn of medial meniscus is seen extending to inferior articulating surface. The lateral meniscus is intact Cruciate ligaments: The anterior and posterior cruciate ligaments appear intact. Medial structures: The medial collateral ligament appears intact. Visualized portions of the pes anserinus tendons appear normal. No abnormal bursal fluid. Lateral structures: The lateral collateral ligament, long and short heads of the biceps femoris tendon appear intact. The popliteus tendon appears normal. Iliotibial band appears normal. Anterior structures: Distal quadriceps tendinosis at its superior patellar insertion is noted. The patellar tendon is intact. Patellar alignment is normal. Bones and cartilage: No bone marrow contusions or fractures. 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 Joint space: There is small knee joint fluid. No Siegel's cyst. Normal appearing synovial plicae are incidentally noted. IMPRESSION: 1. Oblique tear involving posterior horn of medial meniscus extending to inferior articulating surface. No lateral meniscal tear. 2. The cruciate ligaments are intact. 3. Distal quadriceps tendinosis. Patellar tendon is intact. 4. 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 Small joint effusion, no loose bodies. No fracture or dislocation. Dictated by: Wellington Shepherd M.D. on 01/15/2025 at 8:42 Approved by: Wellington Shepherd M.D. on 01/15/2025 at 8:45
== END ==
PROVIDERS: PCP Physician Assistant Medical; Referring Provider Physician Assistant Medical; Visit Provider Physician Assistant Medical
DX: S83.242A Other tear of medial meniscus, current injury, left knee, initial encounter (principal); M17.12 Unilateral primary osteoarthritis, left knee; M22.42 Chondromalacia patellae, left knee; M25.462 Effusion, left knee; M25.562 Pain in left knee
CPT/HCPCS: 73721

== ENCOUNTER → 2025-03-03 09:05 | Outpatient (CLI) | payer MEDICARE, OTHER, SELFPAY | PROVIDERS: PCP Physician Assistant Medical; Visit Provider Physician Assistant Medical | DX: A09 Infectious gastroenteritis and colitis, unspecified (principal) | CPT/HCPCS: 87177 ==

== ENCOUNTER → 2025-06-25 11:17 | Outpatient (CLI) | payer MEDICARE, OTHER, SELFPAY ==
[2025-06-25 12:14] LABS: Add Manual Diff / Slide Review NO; Hematocrit 39.5 % (36-46); Hemoglobin 13.4 g/dL (12.0-16.0); Lymphocytes Absolute Auto 2700 /uL (1100-4500); Mean Corpuscular HGB Conc 34.0 % (30-36); Mean Corpuscular Hemoglobin 29.3 PG (26-34); Mean Corpuscular Volume 86.0 fL (80-100); Platelet Count 247 X10^3/uL (150-400)
[2025-06-25 18:45] LABS: Hemoglobin A1C% w Est Avg Glu 5.6 % (4.0-6.0)
[2025-06-25 19:09] LABS: TSH w/ Reflex to FT4 0.80 uIU/mL (0.47-4.68)
[2025-06-25 19:11] LABS: Free T3, Triiodothyronine Free 3.22 pg/mL (2.77-5.27)
[2025-06-25 21:26] LABS: Cholesterol 241 mg/dL (140-199); HDL Cholesterol 56 mg/dL (40-60); Triglycerides 116 mg/dL (35-150)
== END ==
PROVIDERS: PCP Physician Assistant Medical; Referring Provider Physician Assistant Medical; Visit Provider Physician Assistant Medical
DX: E05.90 Thyrotoxicosis, unspecified without thyrotoxic crisis or storm (principal); E16.2 Hypoglycemia, unspecified; R00.2 Palpitations; G47.00 Insomnia, unspecified
CPT/HCPCS: 36415; 80061; 83036; 84443; 84481; 85025

== ENCOUNTER → 2025-08-19 08:48 | Outpatient (CLI) | payer MEDICARE, OTHER, SELFPAY ==
--- NOTE | 2025-08-19 08:50 | DI.MG.S_ITS ---
MM screening mammo BI: 08/19/2025. BI-RADS: 1 CLINICAL: 74-year old female for bilateral screening mammogram. Tyrer-Cuzick lifetime risk of 2.0%. No personal or first-degree family history of breast cancer. PRIOR EXAMS 07/03/2024, 11/09/2019. MAMMOGRAPHY TECHNIQUE: 2D and 3D (tomosynthesis) digital mammographic views obtained, with additional images as needed for full coverage. Current study was also evaluated with a Computer Aided Detection (CAD) system. DENSITY C. The breasts are heterogeneously dense, which may obscure small masses. MAMMOGRAPHY FINDINGS Bilateral: No suspicious mass, asymmetry, microcalcification, or other abnormality seen. IMPRESSION: * No evidence of malignancy. RECOMMENDATIONS Bilateral * Annual screening mammography. OVERALL ASSESSMENT CATEGORY BI-RADS-1: Negative. [employer] recommends annual screening mammography beginning at age 40 for women with average risk of breast cancer. ELECTRONICALLY SIGNED: Rayna Askew M.D. on 08/19/2025 at 10:47:51 PM PT Interpreting Station ID: [id number]
== END ==
LOC: MAMMO 08:49
PROVIDERS: PCP Physician Assistant Medical; Referring Provider Family Medicine; Visit Provider Family Medicine
DX: Z12.31 Encounter for screening mammogram for malignant neoplasm of breast (principal); R92.333 Mammographic heterogeneous density, bilateral breasts
CPT/HCPCS: 77063; 77067

== ENCOUNTER → 2025-11-05 08:42 | Outpatient (CLI) | payer MEDICARE, OTHER, SELFPAY ==
[2025-11-05 09:00] LABS: Add Manual Diff / Slide Review NO; Hematocrit 42.6 % (36-46); Hemoglobin 14.4 g/dL (12.0-16.0); Lymphocytes Absolute Auto 3500 /uL (1100-4500); Mean Corpuscular HGB Conc 33.9 % (30-36); Mean Corpuscular Hemoglobin 28.8 PG (26-34); Mean Corpuscular Volume 85.0 fL (80-100); Platelet Count 269 X10^3/uL (150-400)
[2025-11-05 09:13] LABS: Blood Urea Nitrogen 16 mg/dL (7-17); Calcium 10.0 mg/dL (8.4-10.2); Carbon Dioxide 28 mmol/L (22-32); Chloride 109 mmol/L (98-107); Estimated Glomerular Filt Rate > 60 mL/min (>60); Glucose 74 mg/dL (70-99); HEMOLYSIS < 15 (0-50); Potassium 3.8 mmol/L (3.4-5.1); Sodium 142 mmol/L (137-145)
== END ==
PROVIDERS: PCP Physician Assistant Medical
DX: Z01.818 Encounter for other preprocedural examination (principal); Z01.812 Encounter for preprocedural laboratory examination; M65.311 Trigger thumb, right thumb
CPT/HCPCS: 36415; 80048; 85025